=== PATIENT | male | born 1995 | race Caucasian/White ===

== ENCOUNTER → 2016-08-05 | Outpatient (CLI) | payer BC | LOC: MW.CHFP 08:08 | PROVIDERS: ATTEND Physician Assistant | DX: J02.9 Acute pharyngitis, unspecified (principal); R22.1 Localized swelling, mass and lump, neck | CPT/HCPCS: 36415; 84443; 85025; 87081; 87880 ==

== ENCOUNTER → 2016-08-09 | Outpatient (CLI) | payer BC ==
--- NOTE | 2016-08-11 14:34 | US ---
EXAM DATE: 08/09/16 PATIENT'S AGE: 21 Patient: ANDREW LAW Facility: [place], [place] Site . Site : 1995 Study: US Head [id number]/24/2017 3:11:17 PM Ordering Physician: Carlos Tripp Final Report: Indication: Neck swelling. Findings: Isthmus is not thickened. Left thyroid is approximately 4 x 1.6 x 1.6 cm. Single round minimally heterogeneous relatively hypoechoic nodule 9 mm in greatest diameter. Blood flow within the nodule on Doppler interrogation. Right thyroid lobe is 4 x 1.4 x 1.8 cm. Uniform echotexture other than area of poorly defined hypoechoic heterogeneous possible nodule measures 15 mm in greatest diameter. Blood flow within the area on color Doppler. No adenopathy in either neck. Impression: Normal size thyroid. 1 cm nodule left thyroid and possible nodule right thyroid. Focal thyroiditis is a consideration on the right. Laboratory correlation recommended. Short interval follow up recommended. If either nodule persists, percutaneous biopsy may be indicated. Dictated by Eliezer Alvarez MD @ Aug 11 2016 1:46PM (Electronic Signature) Report Signed by Proxy and Original Signed Document filed in the Medical Record. MTDD
== END ==
LOC: MW.US 14:27
PROVIDERS: ATTEND Physician Assistant
DX: R22.1 Localized swelling, mass and lump, neck (principal)
CPT/HCPCS: 36415; 76536-26; 76536-50; 84443; 85025

== ENCOUNTER → 2016-08-12 | Outpatient (CLI) | payer BC | LOC: MW.CHFP 09:19 | PROVIDERS: ATTEND Physician Assistant | DX: E04.1 Nontoxic single thyroid nodule (principal) | CPT/HCPCS: 36415; 84439; 84445; 84481; 86376; 86800 ==